=== PATIENT | male | born 1980 | race Caucasian/White ===

== ENCOUNTER 2018-07-16 11:00 | Emergency (ER) | payer OTHER ==
[2018-07-16] MEDS ORDERED: LIDOCAINE 1% MPF 30 ML VIAL ONE (11:20)
--- NOTE | 2018-07-16 11:52 | RAD REPORT ---
EXAM DESCRIPTION: RAD -Hand Left 3 View - 07/16/2018 11:41 am CLINICAL HISTORY: Left hand pain status post injury FINDINGS: Comminuted avulsion fracture involves the second terminal tuft. No dislocation seen
--- NOTE | 2018-07-16 12:27 | ER ---
Nurse's Notes [facility] Name: Aaron Soto Age: 37 yrs Sex: Male : 1980 Arrival Date: 07/16/2018 Time: 11:03 Bed 23 Private MD: Out, [facility] Diagnosis: Left tuft fracture of index finger Presentation: 07/16 11:06 Presenting complaint: Patient states: left 2nd digit laceration with a table saw sv happened about 20 mins ago. Bleeding controlled. Transition of care: patient was not received from another setting of care. Complicating Factors: There are no complicating factors for this patient. Onset of symptoms was July 16, 2018 at 10:40. Care prior to arrival: None. 11:06 Method Of Arrival: Ambulatory sv 11:06 Acuity: DAISY 3 sv 13:06 Risk Assessment: Do you want to hurt yourself or someone else? Patient reports no aj1 desire to harm self or others. Initial Sepsis Screen: Does the patient meet any 2 criteria? No. Patient's initial sepsis screen is negative. Does the patient have a suspected source of infection? Yes: Skin breakdown/wound. Triage Assessment: 11:10 General: Appears in no apparent distress. uncomfortable, Behavior is calm, cooperative, sv appropriate for age. Pain: Complains of pain in left index finger. Neuro: Level of Consciousness is awake, alert, obeys commands, Oriented to person, place, time, situation, Moves all extremities. Gait is steady. Respiratory: Respiratory effort is even, unlabored, Respiratory pattern is regular, symmetrical. Injury Description: Laceration sustained to palmar aspect of distal phalanx of left index finger is contaminated, was sustained less than 30 minutes ago. is bleeding a small amount. Historical: - Allergies: 11:10 No Known Allergies; sv - Home Meds: 11:10 None [Active]; sv - PMHx: 11:10 None; sv - PSHx: 11:10 facial; sv - Immunization history:: Last tetanus immunization: up to date Flu vaccine is not up to date. - Social history:: Smoking status: Patient/guardian denies using tobacco. - Ebola Screening: : No symptoms or risks identified at this time. Screenin:10 Abuse screen: Denies threats or abuse. Denies injuries from another. Nutritional aj1 screening: No deficits noted. Tuberculosis screening: No symptoms or risk factors identified. 13:06 Fall Risk None identified. aj1 Assessment: 11:10 General: Appears in no apparent distress. comfortable, Behavior is calm, cooperative, aj1 appropriate for age. Pain: Denies pain. Neuro: Level of Consciousness is awake, alert, obeys commands. Cardiovascular: Patient's skin is warm and dry. Respiratory: Airway is patent Respiratory effort is even, unlabored, Respiratory pattern is regular, symmetrical. GI: No signs and/or symptoms were reported involving the gastrointestinal system. : No signs and/or symptoms were reported regarding the genitourinary system. EENT: No signs and/or symptoms were reported regarding the EENT system. Derm: Skin is pink, warm \T\ dry. normal. Musculoskeletal: Range of motion: intact in all extremities. Injury Description: Laceration sustained to palmar aspect of distal phalanx of left index finger is 0.5 to 2.5 cm long, bleeding moderately. 11:20 Reassessment: Dr. Buckner at bedside performing digital block. aj1 11:50 Reassessment: Dr. Buckner at bedside performing laceration repair. aj1 12:30 Reassessment: DC pending completion of IV antibiotics. aj1 13:04 Reassessment: Patient appears in no apparent distress at this time. No changes from aj1 previously documented assessment. Patient and/or family updated on plan of care and expected duration. Pain level reassessed. Patient is alert, oriented x 3, equal unlabored respirations, skin warm/dry/pink. Vital Signs: 11:10 BP 145 / 107; aj1 11:11 Pulse 83; Resp 18; Temp 98.2; Pulse Ox 99% ; Weight 88 kg; Height 5 ft. 10 in. (177.80 sv cm); 11:11 Body Mass Index 27.84 (88.00 kg, 177.80 cm) sv ED Course: 11:03 Patient arrived in ED. sb2 11:04 Out, of Town is Private Physician. sb2 11:06 Maite Ferrer, RN is Primary Nurse. aj1 11:09 Triage completed. sv 11:09 Jeet Huerta MD is Attending Physician. genaro 11:09 Attending Physician role handed off by Jeet Huerta MD ps1 11:09 Mark Buckner MD is Attending Physician. ps1 11:10 Patient has correct armband on for positive identification. Placed in gown. Call light aj1 in reach. 11:10 No provider procedures requiring assistance completed. aj1 11:11 Arm band placed on Patient placed in an exam room, on a stretcher, on pulse oximetry. sv 11:30 Wound care: to laceration located on dorsal aspect of distal phalanx of right index jp3 finger, palmar aspect of distal phalanx of right index finger and right index fingernail was cleaned with Hibiclens, soaked in Betadine solution, irrigated with normal saline. 11:40 X-ray completed. Portable x-ray completed in exam room. Patient tolerated procedure mh1 well. 11:42 Hand Left 3 View XRAY In Process Unspecified. EDMS 11:50 Assist provider with laceration repair on palmar aspect of distal phalanx of right aj1 index finger using sutures. Set up tray. Performed by Mark Buckner MD. 12:30 Inserted saline lock: 20 gauge in right forearm, using aseptic technique. Blood aj1 collected. 13:05 Dressings: Wound was covered with AKUA, then wet to dry drsg was applied, stabilized aj1 with a finger splint and secured with tube gauze. Patient tolerated well. 13:06 IV discontinued, intact, bleeding controlled, No redness/swelling at site. Pressure aj1 dressing applied. Administered Medications: 12:30 Drug: Clindamycin 900 mg Route: IVPB; Infused Over: 30 mins; Site: right forearm; aj1 13:04 Follow up: IV Status: Completed infusion; IV Intake: 50ml aj1 13:04 Drug: [place] (7.5 mg-325 mg) 1 tabs Route: PO; aj1 13:04 Follow up: Response: No adverse reaction aj1 Intake: 13:04 IV: 50ml; Total: 50ml. aj1 Outcome: 12:27 Discharge ordered by MD. ps1 13:06 Discharged to home ambulatory. aj1 13:06 Condition: good 13:06 Discharge instructions given to patient, Instructed on discharge instructions, follow up and referral plans. medication usage, Demonstrated understanding of instructions, follow-up care, medications. 13:07 Patient left the ED. aj1 Signatures: Dispatcher [employer] Maite Gong RN RN aj1 Lucy Aceves RN RN sv Anderson, Corey, MD MD genaro Johnathon, Fabiola mh1 Mark Buckner MD MD ps1 Xiomara Love sb2 Kurt Little jp3
--- NOTE | 2018-07-16 12:28 | EDPHYS ---
Physician Documentation [facility] Name: Aaron Soto Age: 37 yrs Sex: Male : 1980 Arrival Date: 07/16/2018 Time: 11:03 Bed 23 Private MD: Out, [facility] ED Physician Mark Buckner HPI: 07/16 11:19 This 37 yrs old Male presents to ER via Ambulatory with complaints of ps1 Laceration - FINGER. 11:19 left hand dominant male presenting with 2nd digit laceration at the distal tip and ps1 nail. Was grabbing for a falling piece of wood and the rotary saw caught it. TDAP UTD. Pain moderate. Good cap refill and ROM. . Historical: - Allergies: 11:10 No Known Allergies; sv - Home Meds: 11:10 None [Active]; sv - PMHx: 11:10 None; sv - PSHx: 11:10 facial; sv - Immunization history:: Last tetanus immunization: up to date Flu vaccine is not up to date. - Social history:: Smoking status: Patient/guardian denies using tobacco. - Ebola Screening: : No symptoms or risks identified at this time. ROS: 11:22 Constitutional: Negative for fever, chills, and weight loss, Eyes: Negative for injury, ps1 pain, redness, and discharge, Cardiovascular: Negative for chest pain, palpitations, and edema, Respiratory: Negative for shortness of breath, cough, wheezing, and pleuritic chest pain, Abdomen/GI: Negative for abdominal pain, nausea, vomiting, diarrhea, and constipation, Skin: Negative for injury, rash, and discoloration, Neuro: Negative for headache, weakness, numbness, tingling, and seizure. 11:22 MS/extremity: Positive for laceration, of the palmar aspect of distal phalanx of left index finger and left index finger. Exam: 11:22 Constitutional: This is a well developed, well nourished patient who is awake, alert, ps1 and in no acute distress. Head/Face: Normocephalic, atraumatic. Eyes: Pupils equal round and reactive to light, extra-ocular motions intact. Lids and lashes normal. Conjunctiva and sclera are non-icteric and not injected. Chest/axilla: Normal chest wall appearance and motion. Nontender with no deformity. No lesions are appreciated. Cardiovascular: Regular rate and rhythm. No gallops, murmurs, or rubs. Normal PMI, no JVD. No pulse deficits. Respiratory: Lungs have equal breath sounds bilaterally, clear to auscultation and percussion. No rales, rhonchi or wheezes noted. No increased work of breathing, no retractions or nasal flaring. Abdomen/GI: Soft, non-tender, with normal bowel sounds. No distension or tympany. No guarding or rebound. No evidence of tenderness throughout. Skin: Warm, dry with normal turgor. Normal color with no rashes, no lesions, and no evidence of cellulitis. 11:22 Musculoskeletal/extremity: Extremities: grossly normal except: noted in the palmar aspect of distal phalanx of left index finger and left index finger: laceration, circumferential laceration 3cm. Good cap refill. No tendon injury identified. . Vital Signs: 11:10 BP 145 / 107; aj1 11:11 Pulse 83; Resp 18; Temp 98.2; Pulse Ox 99% ; Weight 88 kg; Height 5 ft. 10 in. (177.80 sv cm); 11:11 Body Mass Index 27.84 (88.00 kg, 177.80 cm) sv Laceration: 12:31 Wound Repair of 3cm ( 1.2in ) subcutaneous laceration to right hand and right index ps1 fingernail and palmar aspect of distal phalanx of right index finger. Linear shaped.. Irregularly shaped.. Skin/tissue flap noted.. Distal neuro/vascular/tendon intact. Anesthesia: Digital block administered with 4 mls of 1% lidocaine. Wound prep: Extensive cleansing by me, Wound irrigation by me, Wound explored extensively, Copious irrigation. Skin closed with 8 5-0 Prolene using nailbed repair/flap repair. Flap had good flow s/p suturing. . Dressed with Bacitracin, tube gauze, splint. Patient tolerated well. MDM: 11:09 Patient medically screened. [facility] 12:31 Data reviewed: vital signs, nurses notes, radiologic studies, and as a result, I will ps1 discharge patient, administer antibiotics clindamycin IV and keflex PO. . Counseling: I had a detailed discussion with the patient and/or guardian regarding: the historical points, exam findings, and any diagnostic results supporting the discharge/admit diagnosis, the need for outpatient follow up, a hand specialist, to return to the emergency department if symptoms worsen or persist or if there are any questions or concerns that arise at home. 07/16 11:25 Order name: Hand Left 3 View XRAY; Complete Time: 12:19 ps1 Administered Medications: 12:30 Drug: Clindamycin 900 mg Route: IVPB; Infused Over: 30 mins; Site: right forearm; aj1 13:04 Follow up: IV Status: Completed infusion; IV Intake: 50ml aj1 13:04 Drug: [place] (7.5 mg-325 mg) 1 tabs Route: PO; aj1 13:04 Follow up: Response: No adverse reaction aj Disposition: 07/16/18 12:27 Discharged to Home. Impression: Left tuft fracture of index finger. - Condition is Stable. - Discharge Instructions: Finger Fracture. - Prescriptions for Anaprox DS 550 mg Oral Tablet - take 1 tablet by ORAL route every 12 hours As needed; 20 tablet. Keflex 500 mg Oral Capsule - take 1 capsule by ORAL route every 8 hours for 10 days; 30 capsule. Tylenol- Codeine #3 300-30 mg Oral Tablet - take 2 tablet by ORAL route every 6 hours As needed; 30 tablet. Zofran 4 mg Oral Tablet - take 1 tablet by ORAL route every 12 hours As needed; 20 tablet. Medrol (Scar) 4 mg Oral Tablets, Dose Pack - take 1 tablet by ORAL route as directed - follow package instructions; 1 packet. - Medication Reconciliation Form, Thank You Letter, Antibiotic Education, Prescription Opioid Use form. - Follow up: Private Physician; When: 10 - 14 days; Reason: Recheck today's complaints, Continuance of care, Staple/Suture removal, Re-evaluation by your physician. Follow up: Emergency Department; When: As needed; Reason: Fever > 102 F, Worsening of condition. - Problem is new. - Symptoms have improved. Signatures: Dispatcher [employer] EDMS Maite Ferrer RN RN aj1 Lucy Aceves RN RN sv Anderson, Corey, MD MD cha Singer, Phillip, MD MD ps1 Corrections: (The following items were deleted from the chart) 11:24 11:22 Musculoskeletal/extremity: Extremities: grossly normal except: noted in the ps1 palmar aspect of distal phalanx of left index finger and left index finger: laceration, ps1 13:07 12:27 07/16/2018 12:27 Discharged to Home. Impression: Left tuft fracture of index aj1 finger. Condition is Stable. Forms are Medication Reconciliation Form, Thank You Letter, Antibiotic Education, Prescription Opioid Use. Follow up: Private Physician; When: 10 - 14 days; Reason: Recheck today's complaints, Continuance of care, Staple/Suture removal, Re-evaluation by your physician. Follow up: Emergency Department; When: As needed; Reason: Fever > 102 F, Worsening of condition. Problem is new. Symptoms have improved. ps1
[2018-07-16] MEDS ORDERED: CLINDAMYCIN 900MG/D5W 900 MG/50 ML IVPB IV ONE (12:33)
[2018-07-16] MEDS ORDERED: HYDROCODONE/APAP 7.5/325 MG TAB ONE (13:07)
== END 2018-07-16 13:07 | disposition home or self-care (01) ==
LOC: ER 11:00
PROC: 0HXGXZZ Transfer Left Hand Skin, External Approach (ICD-10-PCS; principal; 2018-07-16)
DX: S61.211A Laceration without foreign body of left index finger without damage to nail, initial encounter (principal); S62.601A Fracture of unspecified phalanx of left index finger, initial encounter for closed fracture; W31.2XXA Contact with powered woodworking and forming machines, initial encounter
CPT/HCPCS: 96365; 99284